=== PATIENT | female | born 1970 | race Caucasian/White ===

== ENCOUNTER 2020-06-30 13:01 | Emergency (ER) | payer BC, SELFPAY ==
--- NOTE | ~2020-06-30 | XR_ITS ---
EXAMINATION: XR shoulder RT min 2V INDICATION: Right shoulder pain, initial encounter TECHNIQUE: Four views of the right shoulder are submitted. COMPARISON: None FINDINGS: There is an acute, traumatic, closed greater tuberosity fracture of the right humerus. Abiel ohumeral and acromioclavicular joint spaces are normal. Soft tissues are unremarkable. IMPRESSION: 1. Acute greater tuberosity fracture of the right humerus. Reviewed, dictated and finalized at location A.
[2020-06-30 13:04] VITALS: BP 131/78; PULSE 59; RESP 20; TEMP 36.9; O2SAT 99
--- NOTE | 2020-06-30 14:15 | ED.GENADULT ---
HPI - General Adult General Chief complaint: Extremity Injury, Upper <SANJU Parr Last Filed: 06/30/20 14:37> Stated complaint: right arm pain after slip in shower <SANJU Parr Last Filed: 06/30/20 14:37> Time Seen by Provider: 06/30/20 13:46 <SANJU Parr Last Filed: 06/30/20 14:37> Source: patient <SANJU Parr Last Filed: 06/30/20 14:37> Mode of arrival: ambulatory <SANJU Parr Last Filed: 06/30/20 14:37> Limitations: no limitations <SANJU Parr Last Filed: 06/30/20 14:37> History of Present Illness HPI narrative: Patient is a 50-year-old female who presents with right shoulder injury that occurred today while trying to get into the shower slipped and has since had moderate aching pain of the right shoulder with difficulty lifting the shoulder joint history of prior shoulder surgery denies other injuries or complaints has not taken anything for her symptoms presents with acute pain in no distress <SANJU Parr Last Filed: 06/30/20 14:37> Related Data Home medications: Home Medications Medication Instructions Recorded Confirmed albuterol sulfate INHALATION 11/27/19 amitriptyline 11/27/19 buspirone mg 11/27/19 duloxetine mg PO 11/27/19 ergocalciferol (vitamin D2) 11/27/19 11/27/19 [Vitamin D2] gabapentin 11/27/19 levothyroxine 11/27/19 phentermine mg 11/27/19 tizanidine mg 11/27/19 <SANJU aPrr Last Filed: 06/30/20 14:37> Allergies/adverse reactions: Allergies Allergy/AdvReac Type Severity Reaction Status Date / Time oxytocin Allergy Severe HIVES, Verified 06/30/20 13:23 SWELLING <SANJU Parr Last Filed: 06/30/20 14:37> Review of Systems Review of Systems: All systems reviewed & are unremarkable except as noted in HPI and below <SANJU Parr Last Filed: 06/30/20 14:37> PMFSH Past Medical History Medical History: Medical History (Updated 06/30/20 @ 14:37 by Allen Monroy PA-C) Fibromyalgia <Allen Monroy PA-C - Last Filed: 06/30/20 14:37> Surgical History Surgical History: Surgical History (Updated 06/30/20 @ 14:15 by Allen Monroy PA-C) History of orthopedic surgery <Allen Monroy PA-C - Last Filed: 06/30/20 14:37> Social History Social History: Social History Gender identity (if verbalized by the patient): Female <Allen Monroy PA-C - Last Filed: 06/30/20 14:37> Exam Narrative: Exam Narrative: GENERAL: Well-appearing, well-nourished, and in no acute distress. HEAD: Normocephalic, atraumatic. EYES: PERRLA and EOMI. ENT: Nares clear, no rhinorrhea or epistaxis. Mucous membranes moist. NECK: Supple. No adenopathy or masses. CHEST: Clear to auscultation. No respiratory distress. No wheezes rales or rhonchi HEART: Regular rate and rhythm. No murmur heard. Normal peripheral pulses. ABDOMEN: Soft, nontender, nondistended, normal active bowel sounds. EXTREMITIES: tenderness of the right shoulder no deformity noted. No cervical spine tenderness to palpation SKIN: Warm, dry, no rash. NEURO: No focal deficits. Alert and oriented x3. Neurovascularly intact. Capillary refill less than 2 seconds PSYCH: Normal mood and affect. <Allen Monroy PA-C - Last Filed: 06/30/20 14:37> Course Consultations Consultation #1: Discussed case with orthopedic surgery who recommends placing the patient in a sling or immobilizer and to follow in clinic <Allen Monroy PA-C - Last Filed: 06/30/20 14:37> Date: 06/30/20 <Allen Monroy PA-C - Last Filed: 06/30/20 14:37> Time: 14:36 <Allen Monroy PA-C - Last Filed: 06/30/20 14:37> Vital Signs Vital signs: Vital Signs Temperature 98.4 F 06/30/20 13:04 Pulse Rate 59 L 06/30/20 13:04 Respiratory Rate 20 06/30/20 13:04 Bl
[2020-06-30 15:32] VITALS: BP 110/69; PULSE 50; RESP 18; TEMP 36.6; O2SAT 100
== END 2020-06-30 15:33 | disposition home or self-care (01) ==
PROVIDERS: Emergency Provider Emergency Medicine; PCP Family Medicine
DX: S42.91XA Fracture of right shoulder girdle, part unspecified, initial encounter for closed fracture (principal); M79.7 Fibromyalgia; W18.2XXA Fall in (into) shower or empty bathtub, initial encounter
CPT/HCPCS: 73030; 99284; A9270

== ENCOUNTER 2021-04-21 15:06 | Outpatient (CLI) | payer BC, SELFPAY ==
--- NOTE | ~2021-04-21 | XR_ITS ---
XR foot LT min 3V 04/21/2021 15:33 Indication: Left foot pain Procedure: 4 views left foot Comparison: 11/21/2019 Findings: There is mild polyarticular osteoarthritis of the tarsal metatarsal joints. No acute fractu re, subluxation or dislocation. There are mild degenerative changes of the distal interphalangeal juli nts. Lisfranc joint intact. Prominent degenerative calcaneal enthesophytes. There is mild osteoarthri tis of the intertarsal joints. No significant soft tissue abnormality. Impression: 1: Mild polyarticular osteoarthritis of the left foot. Reviewed, dictated and finalized at location B. Impression: 1: Mild polyarticular osteoarthritis of the left foot.
--- NOTE | ~2021-04-21 | XR_ITS ---
XR foot RT min 3V 04/21/2021 15:33 Indication: Bilateral foot pain Procedure: 4 views right foot Comparison: 11/21/2019 Findings: There is polyarticular degenerative change of the tarsal metatarsal joints. No acute fractu re or traumatic malalignment. Normal mineralization. Prominent degenerative calcaneal enthesophyte. T here is mild osteoarthritis of the metatarsophalangeal joint. No focal soft tissue abnormality. No fo reign bodies. Impression: 1: Mild polyarticular osteoarthritis. 2: Prominent degenerative calcaneal enthesophyte. Reviewed, dictated and finalized at location B. Impression: 1: Mild polyarticular osteoarthritis. 2: Prominent degenerative calcaneal enthesophyte.
== END 2021-04-21 15:07 | disposition home or self-care (01) ==
LOC: ANHIMG 15:11
PROVIDERS: PCP Family Medicine; Visit Provider Family Medicine
DX: M19.071 Primary osteoarthritis, right ankle and foot (principal); M19.072 Primary osteoarthritis, left ankle and foot; M77.31 Calcaneal spur, right foot
CPT/HCPCS: 73630

== ENCOUNTER 2021-05-14 22:14 | Emergency (ER) | payer BC, SELFPAY ==
[2021-05-14 22:17] VITALS: BP 133/74; PULSE 62; RESP 18; TEMP 37.3; O2SAT 99
[2021-05-14] MEDS: KETOROLAC (*BKC) 60 MG/2 ML VIAL IM (23:58)
--- NOTE | 2021-05-15 00:32 | ED.LOWEXIN ---
HPI - Extremity Injury (Lower) General Chief Complaint: Extremity Injury, Lower Stated Complaint: Leg pain Time Seen by Provider: 05/14/21 23:29 History of Present Illness HPI Narrative: Patient is a 51-year-old female who presents ER with some pain over her left knee. Patient reports she fell 2 weeks ago and had large hematoma to her left forearm and left hip/thigh. Reports over the last day she has developed some redness over her left knee just over the anterior aspect more over the distal aspect of the thigh. It is red and itching and tender. There is mild warmth. No lymphangitic streaking. No fevers or chills or sweats. No drainage. No lower extremity swelling. No chest pain or shortness of breath. Related Data Home Medications Medication Instructions Recorded Confirmed albuterol sulfate INHALATION 11/27/19 08/27/20 amitriptyline 11/27/19 08/27/20 buspirone mg 11/27/19 08/27/20 duloxetine mg PO 11/27/19 08/27/20 ergocalciferol (vitamin D2) 11/27/19 08/27/20 [Vitamin D2] gabapentin 11/27/19 08/27/20 levothyroxine 11/27/19 08/27/20 phentermine mg 11/27/19 08/27/20 tizanidine mg 11/27/19 08/27/20 Allergies Allergy/AdvReac Type Severity Reaction Status Date / Time oxytocin Allergy Severe HIVES, Verified 08/27/20 11:00 SWELLING Review of Systems Review of Systems: All systems reviewed & are unremarkable except as noted in HPI and below Constitutional: Constitutional: Denies chills, Denies fever(s) and Denies weakness Cardiovascular: Cardiovascular: Denies chest pain, Denies rapid heart rate and Denies radiating jaw, neck or arm pain Respiratory: Respiratory: Denies cough and Denies dyspnea Integumentary/Breasts: Comments: redness and warmth near left knee PMFSH Past Medical History Medical History (Updated 05/15/21 @ 00:36 by Russel Villegas MD) Anemia Arthritis Asthma Dizziness Fibromyalgia Hypothyroidism Neuropathy Pneumonia Rheumatoid arthritis Urinary frequency Vision abnormalities Weight gain Surgical History Surgical History History of bladder suspension procedure History of cholecystectomy History of hysterectomy History of orthopedic surgery Family History Family History Father Diabetes mellitus Hypertension Malignant neoplasm of prostate Carcinoma of colon Rheumatoid arthritis Mother Arthritis Social History Social History Smoking status: Never smoker Smoking end date: 11/13/04 Alcohol intake: never Gender identity (if verbalized by the patient): Female Exam Narrative: Exam Narrative: GENERAL: Well-appearing, well-nourished, and in no acute distress. HEAD: Normocephalic, atraumatic. EXTREMITIES: Normal range of motion. No edema. SKIN: Warm, dry. Area of redness and warmth just proximal to the left knee medially. Palpable cord noted. NEURO: Alert and oriented x3. PSYCH: Normal mood and affect. Course Course Emergency Course: Seems consistent with superficial thrombophlebitis. Recommend anti-inflammatories as well as warm compresses. Patient with elevated temperatures will give some Keflex as well. Vital Signs Vital signs: Vital Signs Temperature 99.2 F 05/14/21 22:17 Pulse Rate 62 05/14/21 22:17 Respiratory Rate 18 05/14/21 22:17 Blood Pressure 133/74 05/14/21 22:17 Pulse Oximetry 99 05/14/21 22:17 Temperature 99.2 F 05/14/21 22:17 Pulse Rate 62 05/14/21 22:17 Respiratory Rate 18 05/14/21 22:17 Blood Pressure 133/74 05/14/21 22:17 Pulse Oximetry 99 05/14/21 22:17 Discharge Plan Discharge Clinical Impression: Superficial thrombophlebitis Patient Disposition: Home, Self-Care Condition: Stable Instructions: Superficial Thrombophlebitis (ED) Additional Instructions: Apply warm compresses to your knee, take anti-
[2021-05-15 01:22] VITALS: BP 148/96; PULSE 82; RESP 16; TEMP 36.3; O2SAT 98
== END 2021-05-15 01:23 | disposition home or self-care (01) ==
PROVIDERS: Emergency Provider Emergency Medicine; PCP Family Medicine
DX: I80.02 Phlebitis and thrombophlebitis of superficial vessels of left lower extremity (principal); J45.909 Unspecified asthma, uncomplicated; E03.9 Hypothyroidism, unspecified; M06.9 Rheumatoid arthritis, unspecified; M79.7 Fibromyalgia; G62.9 Polyneuropathy, unspecified; M19.90 Unspecified osteoarthritis, unspecified site; Z86.2 Personal history of diseases of the blood and blood-forming organs and certain disorders involving the immune mechanism
CPT/HCPCS: 96372; 99283; J1885

== ENCOUNTER 2021-06-23 11:26 | Emergency (ER) | payer BC, SELFPAY ==
--- NOTE | ~2021-06-23 | XR_ITS ---
XR foot RT min 3V DATE: 06/23/2021 12:04 INDICATION: Fall one day ago. Lateral right ankle and foot pain. TECHNIQUE: 4 views COMPARISON: None FINDINGS: Prominent plantar calcaneal enthesopathy. Minimal posterior calcaneal enthesopathy. Os tibiale externum, normal variant. Mild osteoarthritis at the first metatarsophalangeal joint. No fracture, dislocation, periosteal reaction or bone destruction is detected. IMPRESSION: Calcaneal enthesopathy Mild osteoarthritis at first metatarsophalangeal joint No fracture or dislocation Reviewed, dictated and finalized at location A.
--- NOTE | ~2021-06-23 | XR_ITS ---
XR ankle RT min 3V DATE: 06/23/2021 12:05 INDICATION: Lateral right ankle and foot pain following a fall one day ago TECHNIQUE: 4 views COMPARISON: None FINDINGS: Prominent plantar and mild posterior calcaneal enthesopathy. No fracture or dislocation of the ankle or disruption of the ankle mortise. No periosteal reaction or bone destruction. IMPRESSION: No fracture or dislocation Reviewed, dictated and finalized at location A. IMPRESSION: No fracture or dislocation
[2021-06-23 11:33] VITALS: BP 128/53; PULSE 66; RESP 20; TEMP 36.7; O2SAT 100
--- NOTE | 2021-06-23 12:26 | ED.LOWEXIN ---
HPI - Extremity Injury (Lower) General Chief Complaint: Extremity Injury, Lower Stated Complaint: Possible injury to right Foot and Ankle Time Seen by Provider: 06/23/21 12:27 Source: patient, RN notes reviewed and old records reviewed Mode of arrival: ambulatory Limitations: no limitations History of Present Illness HPI Narrative: 51 year old female who present to express care with complaints of falling at work while pulling a andrzej early Monday morning. Patient works at [employer] on midnight shift. Patient states that coworker helped her get up and pull andrzej off of her. Patient has pain to her right lateral ankle and also to the right lateral foot, swelling is present with increase pain with weight bearing.Patient has adequate circulation to her right foot with strong pedal and posterior pedal pulses. MD complaint: ankle injury and foot injury Onset (ago): day(s) (1) Severity: severe Severity scale (1-10): 8 Exacerbating factors: weight bearing and movement Context: fall Related Data Home Medications Medication Instructions Recorded Confirmed buspirone 15 mg PO TID 06/23/21 06/23/21 gabapentin 300 mg PO TID 06/23/21 06/23/21 levothyroxine 75 mcg PO DAILY 06/23/21 06/23/21 meloxicam 7.5 mg PO DAILY 06/23/21 06/23/21 pregabalin 75 mg PO BID 06/23/21 06/23/21 tizanidine 2 mg PO Q6H PRN 06/23/21 06/23/21 tramadol 50 mg PO Q8H PRN 06/23/21 06/23/21 venlafaxine 75 mg PO DAILY 06/23/21 06/23/21 Allergies Allergy/AdvReac Type Severity Reaction Status Date / Time oxytocin Allergy Severe HIVES, Verified 06/23/21 11:40 SWELLING Review of Systems Review of Systems: CONSTITUTIONAL: Denies fever, chills, or sweats. EYES: Denies visual changes, redness, or discharge. ENT: Denies rhinorrhea, congestion, sore throat, or otalgia. CARDIOVASCULAR: Denies chest pain, palpitations, or edema. RESPIRATORY: Denies cough or dyspnea. GASTROINTESTINAL: Denies abdominal pain, nausea, vomiting, or diarrhea. GENITOURINARY: Denies dysuria or hematuria. SKIN: Denies rash or itching. MUSCULOSKELETAL: Denies back pain,positive pain to the right lateral ankle and lateral foot pain, or myalgia. NEUROLOGIC: Denies headache, numbness, or weakness. PSYCHIATRIC: Positive history of anxiety or depression. All systems reviewed & are unremarkable except as noted in HPI and below PMFSH Past Medical History Medical History (Updated 06/28/21 @ 07:49 by Opal Ramirez NP) Anemia Anxiety and depression Arthritis Asthma Dizziness Fibromyalgia Hypothyroidism Neuropathy Pneumonia Rheumatoid arthritis Urinary frequency Vision abnormalities Weight gain Surgical History Surgical History (Updated 06/28/21 @ 07:41 by Opal Ramirez NP) History of bariatric surgery History of bladder suspension procedure History of cholecystectomy History of hysterectomy History of orthopedic surgery Family History Family History Father Diabetes mellitus Hypertension Malignant neoplasm of prostate Carcinoma of colon Rheumatoid arthritis Mother Arthritis Social History Social History Smoking status: Never smoker Smoking end date: 11/13/04 Alcohol intake: never Gender identity (if verbalized by the patient): Female Comments At time of signature, agree with nursing past medical, surgical, social and family history. There is no relevant family history pertinent to the presenting complaint Exam Narrative: GENERAL: Well-appearing, well-nourished, and in no acute distress. HEAD: Normocephalic, atraumatic. EYES: PERRLA and EOMI. ENT: Nares clear, no rhinorrhea or epistaxis. Mucous membranes moist. NECK: Supple.no lymphadenopathy CHEST: Clear to auscultation. No respiratory distress.Sao2 100% on room air HEART: Regular rate and rhythm. No murmur heard. Normal peripheral pulses. ABDOMEN: Soft, nontender, nondistended, normal a
== END 2021-06-23 13:00 | disposition home or self-care (01) ==
PROVIDERS: Emergency Provider Registered Nurse; PCP Family Medicine
DX: S93.691A Other sprain of right foot, initial encounter (principal); S96.911A Strain of unspecified muscle and tendon at ankle and foot level, right foot, initial encounter; W19.XXXA Unspecified fall, initial encounter; Y99.0 Civilian activity done for income or pay; F41.9 Anxiety disorder, unspecified; F32.9 Major depressive disorder, single episode, unspecified; M19.90 Unspecified osteoarthritis, unspecified site; M79.7 Fibromyalgia; E03.9 Hypothyroidism, unspecified; M06.9 Rheumatoid arthritis, unspecified; G62.9 Polyneuropathy, unspecified
CPT/HCPCS: 73610; 73630; 99214; G0463

== ENCOUNTER 2021-12-20 11:49 | Emergency (ER) | payer BC, SELFPAY ==
--- NOTE | ~2021-12-20 | XR_ITS ---
EXAMINATION: XR forearm LT 2V DATE: 12/20/2021 12:16 INDICATION: Left forearm pain post fall on ice TECHNIQUE: AP an lateral views of the left forearm were obtained. COMPARISON: none FINDINGS: There is mild dorsal impaction of an extra-articular distal metaphyseal fracture of the left radius w ith 15 degree dorsal tilt of the distal articular surface. There is also a minimally displaced transv erse fracture across the base of the ulnar styloid process. No other fractures identified. Normal ali gnment and joint space at the left elbow with no elbow joint effusion. Mild osteoarthritis at the tri scaphe joint. IMPRESSION: 1. Mild dorsal impaction of an extra articular fracture of the distal left radial metaphysis. 2. Minimally displaced fracture at the base of the ulnar styloid process. Reviewed, dictated and finalized at location A. OMS VERIFIER IMPRESSION: 1. Mild dorsal impaction of an extra articular fracture of the distal left radi al metaphysis. 2. Minimally displaced fracture at the base of the ulnar styloid process.
[2021-12-20 11:53] VITALS: BP 148/99; PULSE 69; RESP 16; TEMP 37.1; O2SAT 100
--- NOTE | 2021-12-20 12:54 | ED.GENADULT ---
HPI - General Adult General Chief complaint: Extremity Injury, Upper Stated complaint: Fall Time Seen by Provider: 12/20/21 12:11 Source: patient Mode of arrival: ambulatory Limitations: no limitations History of Present Illness HPI narrative: Patient presents for evaluation of left wrist pain since this morning. She states she was pulling a trashcan when she slipped on ice and landed with left arm outstretched. She did not hit her head nor did she have LOC. She has experienced constant pain since that time. She rates her pain as 10/10 in severity. Pain radiates up her left forearm to her left elbow. She is right hand dominant. She has an underlying hx of rheumatoid arthritis and is prescribed tramadol and lyrica at home. She states she is having difficulty finding a comfortable position in which to sit. Movement makes her pain worse. Related Data Home Medications Medication Instructions Recorded Confirmed buspirone 15 mg PO TID 06/23/21 06/23/21 gabapentin 300 mg PO TID 06/23/21 06/23/21 levothyroxine 75 mcg PO DAILY 06/23/21 06/23/21 meloxicam 7.5 mg PO DAILY 06/23/21 06/23/21 pregabalin 75 mg PO BID 06/23/21 06/23/21 tizanidine 2 mg PO Q6H PRN 06/23/21 06/23/21 tramadol 50 mg PO Q8H PRN 06/23/21 06/23/21 venlafaxine 75 mg PO DAILY 06/23/21 06/23/21 Allergies Allergy/AdvReac Type Severity Reaction Status Date / Time oxytocin Allergy Severe HIVES, Verified 06/23/21 11:40 SWELLING Review of Systems Review of Systems: CONSTITUTIONAL: Denies fever, chills, or sweats. EYES: Denies visual changes, redness, or discharge. ENT: Denies rhinorrhea, congestion, sore throat, or otalgia. CARDIOVASCULAR: Denies chest pain, palpitations, or edema. RESPIRATORY: Denies cough or dyspnea. GASTROINTESTINAL: Denies abdominal pain, nausea, vomiting, or diarrhea. GENITOURINARY: Denies dysuria or hematuria. SKIN: Denies rash or itching. MUSCULOSKELETAL: Reports left wrist pain with radiation into left forearm. Denies back pain or myalgia. NEUROLOGIC: Denies headache, numbness, dizziness, or weakness. PSYCHIATRIC: Denies anxiety or depression. [facility] Past Medical History Medical History (Updated 12/20/21 @ 14:46 by Song Alvarado, [facility], ) Anemia Anxiety and depression Arthritis Asthma Dizziness Fibromyalgia Hypothyroidism Neuropathy Pneumonia Rheumatoid arthritis Urinary frequency Vision abnormalities Weight gain Surgical History Surgical History (Updated 06/28/21 @ 07:41 by Opal Ramirez NP) History of bariatric surgery History of bladder suspension procedure History of cholecystectomy History of hysterectomy History of orthopedic surgery Family History Family History Father Diabetes mellitus Hypertension Malignant neoplasm of prostate Carcinoma of colon Rheumatoid arthritis Mother Arthritis Social History Social History Smoking status: Never smoker Smoking end date: 11/13/04 Alcohol intake: never Gender identity (if verbalized by the patient): Female Course Course Emergency Course: This is a 51-year-old female who presented with complaints of left wrist pain following a fall. X-ray showed fracture of the ulnar styloid process and left radial metaphysis. I contacted Ortho, Dr. Sutherland, who indicated he could see pt in clinic. He was in agreement with plans for sugar tong and sling. Pt was splinted and post-splint NV intact. Provided with sling. She was advised she should follow-up outpatient for further evaluation and treatment return for worsening symptoms. Patient agreed with plan of care. Vital Signs Vital signs: Vital Signs Temperature 37.1 C 12/20/21 11:53 Pulse Rate 69 12/20/21 11:53 Respiratory Rate 16 12/20/21 11:53 Blood Pressure 148/99 H 12/20/21 11:53 Pulse Oximetry 100 12/20/21 11:53 Temperature 37.1 C 12/20/21 11:53 Pulse Rate
[2021-12-20] MEDS: HYDROcodone/acetaminophen (*CRX) 5-325 MG TABLET 2 TAB PO (13:03)
[2021-12-20 15:01] VITALS: BP 142/84; PULSE 78; RESP 16; TEMP 36.6
--- NOTE | 2022-01-03 12:01 | PC.NURSE ---
LATE ENTRY This note is being entered to document information to the patient's record. The following information was omitted on [01/03/22, by [Zoila Dow RN . Injury to left arm, LUE Fx, sling and sugar tong applied to left arm.
== END 2021-12-20 15:02 | disposition home or self-care (01) ==
PROVIDERS: Emergency Provider Nurse Practitioner; PCP Family Medicine
DX: S52.552A Other extraarticular fracture of lower end of left radius, initial encounter for closed fracture (principal); S52.612A Displaced fracture of left ulna styloid process, initial encounter for closed fracture; J45.909 Unspecified asthma, uncomplicated; M06.9 Rheumatoid arthritis, unspecified; M19.90 Unspecified osteoarthritis, unspecified site; M79.7 Fibromyalgia; E03.9 Hypothyroidism, unspecified; G62.9 Polyneuropathy, unspecified; F41.9 Anxiety disorder, unspecified; F32.A Depression, unspecified; Z87.01 Personal history of pneumonia (recurrent); Z98.84 Bariatric surgery status; W00.0XXA Fall on same level due to ice and snow, initial encounter
CPT/HCPCS: 29125; 73090; 99284; A4565; A9270

== ENCOUNTER 2022-09-02 06:38 | Outpatient (CLI) | payer BC, SELFPAY ==
--- NOTE | ~2022-09-02 | XR_ITS ---
EXAMINATION: XR shoulder RT min 2V DATE: 09/02/2022 07:55 INDICATION: Multiple joint pain. TECHNIQUE: 2 views of right shoulder were obtained. COMPARISON: Right shoulder radiographs 08/27/2020 FINDINGS: Bone alignment is normal. No fracture. There is moderate osteoarthritis of acromioclavicula r joint. Glenohumeral joint is normal. IMPRESSION: 1. Moderate osteoarthritis of the acromioclavicular joint. Reviewed, dictated and finalized at location A.
--- NOTE | ~2022-09-02 | XR_ITS ---
EXAMINATION: XR ankle LT 2V, XR ankle RT 2V, XR foot RT 2V, XR foot LT 2V DATE: 09/02/2022 07:55 INDICATION: Multiple joint pain TECHNIQUE: 1. Anteroposterior and lateral view of the left ankle were obtained. 2. Dorsoplantar and lateral views of the left foot were obtained. 3. Anteroposterior and lateral view of the right ankle were obtained. 4. Dorsoplantar and lateral views of the right foot were obtained. COMPARISON: None. FINDINGS: Right foot and ankle: Alignment of the right foot and ankle is normal. No fracture or osteochondral lesion. Mild to moderat e osteoarthritis in the right foot most prominent at the talonavicular, naviculocuneiform, second and third tarsal metatarsal and several interphalangeal joints. Large plantar calcaneal spur. No ankle j oint effusion. The soft tissues are unremarkable. Left foot and ankle: Alignment of the left foot and ankle is normal. No fracture or osteochondral lesion. Relatively symme tric pattern of mild to moderate osteoarthritis in the right foot most prominent at the talonavicular , naviculocuneiform, and third tarsal metatarsal and several interphalangeal joints. Large plantar ca lcaneal spur. No ankle joint effusion. The soft tissues are unremarkable. IMPRESSION: 1. Relatively symmetric pattern of mild to moderate polyarticular osteoarthritis in the bilateral fee t. 2. Large bilateral plantar calcaneal spurs. Reviewed, dictated and finalized at location A. IMPRESSION: 1. Relatively symmetric pattern of mild to moderate polyarticular osteoarthriti s in the bilateral feet. 2. Large bilateral plantar calcaneal spurs. IMPRESSION: 1. Relatively symmetric pattern of mild to moderate polyarticular osteoarthriti s in the bilateral feet. 2. Large bilateral plantar calcaneal spurs. IMPRESSION: 1. Relatively symmetric pattern of mild to moderate polyarticular osteoarthriti s in the bilateral feet. 2. Large bilateral plantar calcaneal spurs.
--- NOTE | ~2022-09-02 | XR_ITS ---
EXAMINATION: XR hand LT 2V, XR hand RT 2V DATE: 09/02/2022 07:55 INDICATION: Multiple joint pain TECHNIQUE: 1. Posteroanterior and lateral views of the left hand were obtained. 2. Posteroanterior and lateral views of the right hand were obtained. COMPARISON: Left wrist radiographs dated 01/06/2022 and right hand radiographs dated 09/08/2017 FINDINGS: Left hand: The previously acute distal left radial fracture has been fixed with a volar T plate and screws and h as healed in essentially anatomic alignment. 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 No new fractures identified. Again seen are postoperative change of prior first carpal metacarpal suspension arthroplasty with resection of the trapezium. Moderate osteoarthritis o f the remaining triscaphe joint and irregular cortical contour at the base of the first metacarpal li lori related to prior osteoarthritis. Additional mild polyarticular osteoarthritis at the wrist, midc arpal, first metacarpophalangeal and multiple interphalangeal joints with distal predominance. No ero sions. Soft tissues are unremarkable. Right hand: Alignment is normal. No fracture. Mild polyarticular osteoarthritis at the triscaphe, first carpometa carpal, first metacarpophalangeal and multiple interphalangeal joints with distal predominance. No er osions. Mild soft tissue swelling dorsal to the third metacarpophalangeal joint. IMPRESSION: 1. Polyarticular osteoarthritis at the bilateral hands, mild to moderate on the left and mild at the right. 2. Status post left first carpal metacarpal suspension arthroplasty with resection of the left trapez ium. 3. Interval internal fixation and healing essentially anatomic alignment of a prior distal left radia l fracture. Ulnar styloid fracture remains minimally distracted now chronically nonunited. Reviewed, dictated and finalized at location A. IMPRESSION: 1. Polyarticular osteoarthritis at the bilateral hands, mild to moderate on the left and mild at the right. 2. Status post left first carpal metacarpal suspension arthroplasty with resect ion of the left trapezium. 3. Interval internal fixation and healing essentially anatomic alignment of a p rior distal left radial fracture. Ulnar styloid fracture remains minimally dist racted now chronically nonunited.
--- NOTE | ~2022-09-02 | XR_ITS ---
EXAMINATION: XR elbow RT 2V DATE: 09/02/2022 07:55 INDICATION: Multiple joint pain TECHNIQUE: Anteroposterior and lateral views of the right elbow were obtained. COMPARISON: 07/23/2020 FINDINGS: Alignment is normal. No fracture or joint effusion. No erosions. Unchanged small enthesophyte at the lateral epicondylar origin of the common extensor tendon wad. Joint spaces are normal. Soft tissues a re unremarkable. IMPRESSION: 1. Chronic small enthesophyte at the lateral epicondylar origin of the common extensor tendon wad. Ot herwise negative right elbow radiographs. Reviewed, dictated and finalized at location A. IMPRESSION: 1. Chronic small enthesophyte at the lateral epicondylar origin of the common e xtensor tendon wad. Otherwise negative right elbow radiographs.
--- NOTE | ~2022-09-02 | XR_ITS ---
EXAMINATION: XR knee LT 2V, XR knee RT 2V DATE: 09/02/2022 07:55 INDICATION: Multiple joint pain TECHNIQUE: 1. AP and lateral views of the left knee were obtained. 2. AP and lateral views of the right knee were obtained. COMPARISON: None. FINDINGS: Alignment is normal at both knees. No fracture. Joint spaces appear normal with no osteophytosis or erosions. Subcutaneous varicosities along the medial aspect of the left calf. Soft tissues are otherw ise unremarkable. No joint effusion at either knee. IMPRESSION: 1. No knee joint effusion or osseous abnormality at either knee. Reviewed, dictated and finalized at location A. IMPRESSION: 1. No knee joint effusion or osseous abnormality at either knee.
--- NOTE | ~2022-09-02 | XR_ITS ---
EXAMINATION: XR elbow LT 2V DATE: 09/02/2022 07:55 INDICATION: Multiple joint pain TECHNIQUE: Anteroposterior and lateral views of the elbow were obtained. COMPARISON: None. FINDINGS: Alignment is normal. No fracture or joint effusion. No erosions. Joint spaces are normal. Soft tissue s are unremarkable. IMPRESSION: 1. Negative left elbow radiographs. Reviewed, dictated and finalized at location A.
--- NOTE | ~2022-09-02 | MR_ITS ---
EXAMINATION: MR lumbar spine wo con DATE: 09/02/2022 07:42 INDICATION: Low back pain. TECHNIQUE: Magnetic resonance imaging (MRI) of the lumbar spine was performed without intravenous con trast. Sequences included sagittal T2-weighted FSE, sagittal T2-weighted FS FSE, sagittal T1-weighted FSE, and axial T2-weighted FSE. COMPARISON: Lumbar spine MRI 03/28/2016, chest 2 views 03/30/2015 FINDINGS: There is 4 degrees dextrocurvature of lumbar spine. There are 12 pairs of ribs. L5 is a tra nsitional segment. There are Schmorl's nodes at multiple levels. There is mildly decreased disc heigh t at L2-L3 and severely decreased disc height at L4-L5. The distal spinal cord signal intensity is no rmal. The conus medullaris is at T12-L1. The following disc levels are specifically discussed: L1-L2: The disc is bulging. There is mild bilateral facet joint osteoarthritis. There is mild left ne ural foraminal stenosis. There is mild central canal stenosis. L2-L3: The disc is bulging and has an annular fissure. There is mild bilateral facet joint osteoarthr itis. There is mild bilateral neural foraminal stenosis. There is mild central canal stenosis. L3-L4: The disc is bulging and has an annular fissure. There is severe bilateral facet joint osteoart hritis. There is mild bilateral neural foraminal stenosis. There is mild central canal stenosis. L4-L5: The disc is bulging and has an annular fissure. There is severe bilateral facet joint osteoart hritis. There is moderate bilateral neural foraminal stenosis. There is mild central canal stenosis. L5-S1: The disc does not extend beyond the endplate margin. There is no facet joint osteoarthritis. T here is no neural foraminal stenosis. There is no central canal stenosis. IMPRESSION: 1. Severe lower lumbar spondylosis, slightly worsened from 03/28/2016. Reviewed, dictated and finalized at location A.
[2022-09-02 08:43] LABS: Hematocrit 30.1 % (37.0-47.0); Hemoglobin 8.4 g/dL (12.0-15.0); Mean Corpuscular HGB Conc 27.9 g/dl (32-36); Mean Corpuscular Hemoglobin 18.6 pg (26-34); Mean Corpuscular Volume 66.7 fl (80-100); Mean Platelet Volume 9.9 fl (7.4-10.4); Platelet Count Result 245 k/mm3 (150-375); Red Blood Count 4.51 M/mm3 (4.2-5.4); Red Cell Distribution Width 19.4 % (11.5-14.5); White Blood Count 4.6 K/mm3 (4.5-10.0)
[2022-09-02 08:55] LABS: Alanine Aminotransferase 22 U/L (6-35); Albumin Level 3.8 g/dL (3.5-5.1); Alkaline Phosphatase 133 U/L (38-126); Anion Gap 6 mmol/L (8-16); Aspartate Amino Transferase 35 U/L (14-36); Bilirubin,Total 0.3 mg/dL (0.2-1.3); Blood Urea Nitrogen 11 mg/dL (7-17); CRP < 0.5 mg/dL (<1.0); Calcium 8.6 mg/dL (8.4-10.2); Carbon Dioxide 29 mmol/L (22-30); Chloride 105 mmol/L (98-107); Creatine Kinase 166 U/L (30-135); Estimated Glomerular Filt Rate > 60; Glucose 85 mg/dL (65-110); Magnesium 1.9 mg/dL (1.6-2.3); Sodium 140 mmol/L (137-145); Uric Acid 4.8 mg/dL (2.5-7.5)
[2022-09-02 08:56] LABS: Rheumatoid Factor < 8.6 IU/ML (<12)
[2022-09-02 09:02] LABS: Hemoglobin A1C 5.5 % (<5.7)
[2022-09-02 09:16] LABS: Erythrocyte Sedimentation Rate 25 mm/hr (0-20)
[2022-09-02 09:28] LABS: Eosinophil Urine None Seen % (None Seen)
[2022-09-02 09:58] LABS: Folic Acid 12.8 ng/mL (2.76->20)
[2022-09-02 10:02] LABS: Vitamin D 25 Hydroxy < 12.8 ng/mL
[2022-09-02 10:08] LABS: Free T4 Free Thyroxine 0.92 ng/mL (0.78-2.19)
[2022-09-06 18:52] LABS: Albumin 3.5 g/dL (3.8-4.8); Alpha 1 Globulin 0.3 g/dL (0.2-0.3); Alpha 2 Globulin 0.8 g/dL (0.5-0.9); Beta 1 Globulin 0.5 g/dL (0.4-0.6); Protein, Total 6.3 g/dL (6.1-8.1)
[2022-09-07 12:24] LABS: Anti Cyclic Citrullinated Pept <16 Units (<20)
[2022-09-07 13:48] LABS: Kappa Lambda Free Ratio RU 8.93 (<=8.69); Kappa Light Chains, Free RU 13.39 mg/L (<=32.90)
[2022-09-08 07:07] LABS: Total Protein/Creatinine Ratio 78 mg/g creat (24-184)
[2022-09-09 04:58] LABS: Vitamin B1 14 nmol/L (8-30)
== END 2022-09-02 06:39 | disposition home or self-care (01) ==
PROVIDERS: PCP Family Medicine; Visit Provider Internal Medicine Rheumatology
DX: M54.50 Low back pain, unspecified (principal); M25.50 Pain in unspecified joint; R73.09 Other abnormal glucose; E55.9 Vitamin D deficiency, unspecified; E53.8 Deficiency of other specified B group vitamins; D50.9 Iron deficiency anemia, unspecified; Z51.81 Encounter for therapeutic drug level monitoring; M19.011 Primary osteoarthritis, right shoulder; M47.896 Other spondylosis, lumbar region; M19.041 Primary osteoarthritis, right hand; M19.042 Primary osteoarthritis, left hand; M77.31 Calcaneal spur, right foot; M77.32 Calcaneal spur, left foot
CPT/HCPCS: 36415; 72148; 73030; 73070; 73120; 73560; 73600; 73620; 80053; 82306; 82550; 82570; 82607; 82728; 82746; 83036; 83520; 83735; 84155; 84156; 84165; 84166; 84207; 84425; 84439; 84443; 84550; 85027; 85652; 85999; 86038; 86140; 86200; 86334; 86335; 86430

== ENCOUNTER 2022-10-16 09:09 | Outpatient (CLI) | payer BC, SELFPAY ==
--- NOTE | ~2022-10-16 | MR_ITS ---
EXAMINATION: MR shoulder RT wo con DATE: 10/16/2022 10:31 INDICATION: Right shoulder pain. TECHNIQUE: Magnetic resonance imaging (MRI) of the right shoulder was performed without intravenous c ontrast. Sequences included axial PD-weighted FS FSE, coronal oblique PD-weighted FS FSE and T2-weigh danis FS FSE, and sagittal oblique T2-weighted FS FSE and T1-weighted FSE. COMPARISON: X-ray right shoulder 09/02/2022. FINDINGS: This examination is limited by motion, [id number] ratio, and positioning. Coracoacromial arch: There is no significant downsloping of the type I acromion. Mild-moderate degenerative change at the AC joint, without significant inferior osteophytosis. Small acromial tip enthesopathy. No significant subacromial or subcoracoid narrowing. Rotator cuff: 3 mm partial-thickness articular surface tear of the anterior fibers of the supraspinatus at their in sertion. Thin, broad based rim-rent tear at the insertion of the infraspinatus. Teres minor and supra spinatus are intact. No significant atrophy. Biceps tendon and glenoid labrum: Long and short heads of the biceps tendon are intact. Degenerative signal change in the glenoid labru m. Fluid: Small volume subacromial subdeltoid fluid. No significant glenohumeral fluid. Bones/cartilage: No suspicious focal or diffuse marrow signal. Diffuse cartilage thinning at the glenohumeral joint. IMPRESSION: 1. Limited examination, as detailed above. 2. Focal, partial, articular surface tear of the supraspinatus. 3. Thin, rim-rent type tear of the infraspinatus. 4. Moderate AC joint and glenohumeral joint osteoarthritis. 5. Subacromial/subdeltoid bursitis. Reviewed, dictated and finalized at location K. D JOCKEY
== END 2022-10-16 09:10 | disposition home or self-care (01) ==
PROVIDERS: PCP Family Medicine; Visit Provider Internal Medicine Rheumatology
DX: M19.011 Primary osteoarthritis, right shoulder (principal); M75.101 Unspecified rotator cuff tear or rupture of right shoulder, not specified as traumatic; M75.51 Bursitis of right shoulder
CPT/HCPCS: 73221

== ENCOUNTER 2023-07-10 13:30 | Outpatient (RCR) | payer BC, SELFPAY ==
--- NOTE | 2023-05-31 17:39 | PTOPEVAL1 ---
Assessment and note entered by Trino Cox Evaluation Information Assessment Status Evaluation Diagnosis low back pain Onset 05/17/23 Subjective Information Pt. reports that she has been experience really bad back pain for about 2 years. 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 She describes her pain going across the low back. She will get occasional pain going down the left leg. She reports that she is currently off work and has been since January due to hand surgery. She reports that she has undergone MRI which revealed arthritis in the low back. she does express concern regarding her ability to return to her work duties due to her back pain. She reports that her pain is worsened with long periods of standing. She estimates that she can only currently stand for about 10 minutes before having to sit to relieve her pain. She that she sleeps terribly due to her back pain. She reports waking frequently. She states that her goal for therapy is to decrease her low back pain. Reported Pain Level Pain Score 8: Self Report Assessment PT Clinical Summary Pt. is a 53 year old female who enters the clinic with low back pain and fibromyalgia. she presents with poor tolerance to prolonged standing activities and would benefit from treatment in an aquatic environment 1x/week intially combined with 1 day of land based treatment. she currently presents with pain, functional decline, impaired gait, impaired flexibility and poor postural awareness. Continued skilled PT is indicated in order to improve these areas to allow the pt. to be able to complete all IADL's with improved comfort. Plan of Care Interventions Aquatic Therapy,Electrical Stimulation,Gait Training,Hot Pack/Cold Pack,Manual Therapy,Neuro Re-education,Patient/Caregiver Educati,Therapeutic Activities,Therapeutic Exercise,Self-Care/Home Management PT Services Indicated Yes Treatment Frequency and 2x/week with 1 day of aquatic based treatment and Duration 1 day of land based treatment for 10 visits These treatments will address the objective and functional deficits as defined above. The patient will be advanced safely and appropriately in order for the patient to progress towards his/her prior level of function. Additional exercises will be introduced and as well as a comp
--- NOTE | 2023-05-31 17:40 | OPREHPOC ---
Outpatient Therapy Plan of Care This is a Multidisciplinary Plan of Care that may contain components documented by all disciplines (PT, OT, and ST.) PT Problem 1 PT Problem #1 Knowledge Deficit PT Goal 1 Goal Pt. will be independent with a HEP addressing trunk mobility and core strength Target Visit 2 PT Problem 2 PT Problem #2 Impaired Gait PT Goal 1 Goal Pt. will be able to ambulate a distance of 800' in 6 minutes indicating improved gait effiiciency Target Visit 10 PT Problem 3 PT Problem #3 Impaired Functional Mobil PT Goal 1 Goal Pt. will be able to perform 20 minutes of land based treatment in standing without requesting rest with pain levels at 5/10 at worst PT Problem 4 PT Problem #4 Impaired Range of Motion PT Goal 1 Goal Pt. will be able to safely reach to the floor to lift small objects with proper body mechanics. Target Visit 10
--- NOTE | 2023-07-20 12:23 | PCPTNOTE ---
Pt. did not show for her scheduled appointment on 07/20/23. Attempted to contact the pt.
--- NOTE | 2023-08-16 15:31 | PTOPDC ---
Assessment and note entered by Trino Cox Evaluation Information Assessment Status Discharge - Pt Not Present Diagnosis low back pain Onset 05/17/23 Assessment PT Clinical Summary Mrs. Graham attended a total of 10 treatment sessions. She did not show for her last scheduled appointment and has failed to contact the clinic. The pt. will be discharged from our care at this time. Refer to her last daily note for discharge status. Plan of Care PT Services Indicated No
== END 2023-08-18 12:53 | disposition home or self-care (01) ==
LOC: ANHPT 13:30
PROVIDERS: PCP Family Medicine; Visit Provider Internal Medicine Rheumatology
DX: M54.50 Low back pain, unspecified (principal)
CPT/HCPCS: 97110; 97112; 97113; 97161; 97530; 99199